=== PATIENT | male | born 1960 | race Caucasian/White ===

== ENCOUNTER 2021-08-05 11:25 | Emergency (ER) | payer SELFPAY ==
[~2021-08-05] VITALS: Ht 160 cm; Wt 61.2 kg
[~2021-08-05 11:25] MED LIST: ASPIRIN81 MG PO; NO MEDS
[2021-08-05 13:16] VITALS: BP 152/88
== END 2021-08-05 13:20 | DRG 605 ==
LOC: ED 11:25
DX: S00.03XA Contusion of scalp, initial encounter (principal); S13.9XXA Sprain of joints and ligaments of unspecified parts of neck, initial encounter; S20.211A Contusion of right front wall of thorax, initial encounter; S70.01XA Contusion of right hip, initial encounter; F17.200 Nicotine dependence, unspecified, uncomplicated; W11.XXXA Fall on and from ladder, initial encounter; Y92.009 Unspecified place in unspecified non-institutional (private) residence as the place of occurrence of the external cause

== ENCOUNTER 2021-08-06 13:06 | Observation (INO) | payer OTHER ==
[~2021-08-06] VITALS: Ht 160 cm; Wt 50.6 kg
[2021-08-06 13:34] LABS: HEMATOCRIT 44.8 % (39.0-50.0); HEMOGLOBIN 15.1 g/dl (14.0-18.0); IMMATURE GRANULOCYTES 0.2 % (0.0-5.0); MEAN CELL VOLUME 96.6 fL CALC (80.0-100.0); MEAN CORPUSCULAR HGB 32.5 pG CALC (26.0-32.0); MEAN CORPUSCULAR HGB CONC 33.7 g/dL CAL (32.0-36.0); NEUT# 4.55 thou/uL (1.82-7.42); RED BLOOD COUNT 4.64 mill/uL (4.70-6.10)
[2021-08-06 13:46] LABS: ALBUMIN 4.2 g/dL (3.2-5.0); ALKALINE PHOSPHATASE 85 u/l (38-126); BUN 12 mg/dL (8-23); BUN/CREATININE RATIO 18 (12-20 (CALC)); CHLORIDE 101 mmol/l (95-108); CREATININE 0.7 mg/dL (0.7-1.3); GFR > 60 ML/MIN (>=60 (CALC)); GFR FOR AFR.AMER. > 60 ML/MIN (>=60 (CALC)); LIPASE 74 u/l (23-300); MAGNESIUM 2.2 mg/dL (1.6-2.3); POTASSIUM 4.3 mmol/l (3.5-5.1); SGOT/AST 38 u/l (19-48); SODIUM 135 mmol/l (137-146); TOTAL PROTEIN 7.7 g/dL (6.3-8.2)
[2021-08-06 13:50] LABS: ANION GAP 10 (6-22 (CALC)); BILIRUBIN, TOTAL 0.9 mg/dL (0.0-1.4); CARBON DIOXIDE 28 mmol/l (22-30)
[2021-08-06 14:01] LABS: ACT PARTIAL THROMBO TIME 24.3 SECONDS (20.0-32.5); INTERNATIONAL NORMALIZED RATIO 0.9 RATIO (0.7-1.3); PROTHROMBIN TIME 9.7 SECONDS (9.0-12.5)
[2021-08-06 16:45] VITALS: BP 141/81
[2021-08-06 19:20] VITALS: BP 143/80
[2021-08-07] VITALS: BP 122/74
[2021-08-07 04:00] VITALS: BP 138/81
[2021-08-07 06:14] LABS: HEMATOCRIT 43.4 % (39.0-50.0); MEAN CELL VOLUME 93.3 fL CALC (80.0-100.0); MEAN CORPUSCULAR HGB 32.3 pG CALC (26.0-32.0); MEAN CORPUSCULAR HGB CONC 34.6 g/dL CAL (32.0-36.0); RED BLOOD COUNT 4.65 mill/uL (4.70-6.10); RED CELL DISTRI WIDTH 13.2 % (11.5-15.5)
[2021-08-07 06:24] LABS: ANION GAP 11 (6-22 (CALC)); BUN 14 mg/dL (8-23); BUN/CREATININE RATIO 22 (12-20 (CALC)); CARBON DIOXIDE 27 mmol/l (22-30); CHLORIDE 101 mmol/l (95-108); CREATININE 0.7 mg/dL (0.7-1.3); GFR > 60 ML/MIN (>=60 (CALC)); GFR FOR AFR.AMER. > 60 ML/MIN (>=60 (CALC)); POTASSIUM 3.8 mmol/l (3.5-5.1); SODIUM 135 mmol/l (137-146)
[2021-08-07 07:30] VITALS: BP 128/74
[2021-08-07 10:22] VITALS: BP 124/82
[2021-08-07] MEDS ORDERED: ASPIRIN 81 LOW81 MG PO (11:11)
[2021-08-07] MEDS ORDERED: ASPIRIN LOW81 M1 PO (11:19)
== END 2021-08-07 11:50 | DRG 313 ==
LOC: ED 13:06 → ED-I 15:04 → ED 15:22 → MS2 15:23
PROVIDERS: ADMIT Hospitalist; ATTEND Hospitalist
DX: R07.9 Chest pain, unspecified (principal); I10 Essential (primary) hypertension; E11.9 Type 2 diabetes mellitus without complications; F17.210 Nicotine dependence, cigarettes, uncomplicated; I25.2 Old myocardial infarction; Z20.822 Contact with and (suspected) exposure to COVID-19
CPT/HCPCS: G0378; J1650; Q9967

== ENCOUNTER 2021-08-28 21:51 | Observation (INO) | payer SELFPAY ==
[~2021-08-28] VITALS: Ht 160 cm; Wt 60.0 kg
[~2021-08-28 21:51] MED LIST changes: +ASPIRIN 81 LOW81 MG PO; +ASPIRIN LOW81 M1 PO
--- NOTE | 2021-08-28 22:40 | NUR ---
TO ROOM 9 VIA W/C. TRIAGED AT BEDSIDE.
[2021-08-28 23:07] LABS: HEMATOCRIT 36.6 % (39.0-50.0); HEMOGLOBIN 12.4 g/dl (14.0-18.0); IMMATURE GRANULOCYTES 0.4 % (0.0-5.0); MEAN CELL VOLUME 96.8 fL CALC (80.0-100.0); MEAN CORPUSCULAR HGB 32.8 pG CALC (26.0-32.0); MEAN CORPUSCULAR HGB CONC 33.9 g/dL CAL (32.0-36.0); NEUT# 3.28 thou/uL (1.82-7.42); RED BLOOD COUNT 3.78 mill/uL (4.70-6.10); RED CELL DISTRI WIDTH 12.9 % (11.5-15.5)
[2021-08-28 23:20] LABS: ALBUMIN 3.6 g/dL (3.2-5.0); ALKALINE PHOSPHATASE 67 u/l (38-126); ANION GAP 7 (6-22 (CALC)); BILIRUBIN, TOTAL 0.6 mg/dL (0.0-1.4); BUN 13 mg/dL (8-23); BUN/CREATININE RATIO 18 (12-20 (CALC)); CARBON DIOXIDE 30 mmol/l (22-30); CHLORIDE 106 mmol/l (95-108); CREATININE 0.7 mg/dL (0.7-1.3); GFR > 60 ML/MIN (>=60 (CALC)); GFR FOR AFR.AMER. > 60 ML/MIN (>=60 (CALC)); POTASSIUM 3.9 mmol/l (3.5-5.1); SGOT/AST 46 u/l (19-48); SODIUM 139 mmol/l (137-146); TOTAL PROTEIN 6.6 g/dL (6.3-8.2)
--- NOTE | 2021-08-29 00:05 | NUR ---
RETURNED FROM X-RAY. NO CHANGE IN EXAM.
--- NOTE | 2021-08-29 00:30 | NUR ---
[facility] AT BEDSIDE
--- NOTE | 2021-08-29 01:15 | NUR ---
[facility] AT BEDSIDE
--- NOTE | 2021-08-29 02:15 | NUR ---
Admission Note Report Given to: STEVE HERRERA Transported by: X Wheelchair Stretcher Transported with: X Nurse Transporter X Patent IV O2 Transfer Agent Location: ICU X [facility]
[2021-08-29 02:25] VITALS: BP 177/82
--- NOTE | 2021-08-29 02:25 | NUR ---
PT ARRIVED TO FLOOR VIA WHEELCHAIR ACCOMPAINED BY ER STAFF. PT ALERT AND ORIENTED X4. PT C/O LEFT SIDED PAIN 05/13. MEDICATED AT THIS TIME WITH PRN PERCOCET. PT DENIES ANY OTHER COMPLAINTS. DISCUSSED POC AND SAFETY PRECAUTIONS. PT VERBALIZED UNDERSTANDING. ORIENTED TO ROOM AND CALL LIGHT SYSTEM. EDUCATED ON PHONE USE IN ROOM UPON REQUEST. IV SITE FLUSHED WELL WITH BRISK BLOOD RETURN, IVF INITIATED. CALL LIGHT WITHIN REACH. WILL CONTINUE TO MONITOR.
[2021-08-29 03:09] VITALS: BP 137/83
[2021-08-29 04:57] VITALS: BP 133/76
--- NOTE | 2021-08-29 06:16 | NUR ---
PT RESTING IN BED. NO APPARENT DISTRESS NOTED. RESPIRATIONS EVEN AND UNLABORED. CALL LIGHT WITHIN REACH. WILL CONTINUE TO MONITOR.
[2021-08-29 09:24] VITALS: BP 135/71
--- NOTE | 2021-08-29 09:24 | NUR ---
PT LAYING IN BED. A&O X3. PT C/O OF LT RIB PAIN. IN NO APPRENT RESPIRATORY DISTRESS. O2 VIA RA 100%. CLEAR BREATH SOUNDS UPON AUSCULTATION. ACTIVE BOWEL SOUNDS X4 QUADRANTS. IV HEALTHY AND PATENT. RT ANKLE SWOLLEN, ELEVATED ON PILLOW. ASSESSMENT COMPLETED. DISCUSSED POC. CALL LIGHT WITHIN REACH.
--- NOTE | 2021-08-29 10:54 | NUR ---
DR PURI AND Wendy CARDENAS APRN AT BEDSIDE DISCUSSING POC
--- NOTE | 2021-08-29 12:45 | NUR ---
PT EATING LUNCH. NO DISTRESS NOTED. CALL LIGHT WITHIN REACH.
[2021-08-29] MEDS ORDERED: FLEXERIL5 M1 PO (13:02)
[2021-08-29] MEDS ORDERED: LORTAB 5/3255 MG PO (13:02)
--- NOTE | 2021-08-29 15:10 | NUR ---
Discharge instructions given. Patient verbalizes understanding of same. Discharged in stable condition via Wheelchair to Home with staff. IS device given. All belongings sent with pt.
--- NOTE | 2021-08-29 15:52 | NUR ---
Attempted evaluation but patient had already discharged
== END 2021-08-29 15:10 | disposition home or self-care (01) | DRG 999 ==
LOC: ED 21:51 → ED-I 08-29 00:33 → ED 08-29 00:59 → MS2 08-29 01:00
PROVIDERS: Emergency Medicine; ADMIT Hospitalist; ATTEND Hospitalist
DX: S27.0XXA Traumatic pneumothorax, initial encounter (principal); S22.32XA Fracture of one rib, left side, initial encounter for closed fracture; S32.028A Other fracture of second lumbar vertebra, initial encounter for closed fracture; I10 Essential (primary) hypertension; E11.9 Type 2 diabetes mellitus without complications; I25.2 Old myocardial infarction; F17.200 Nicotine dependence, unspecified, uncomplicated; V03.90XA Pedestrian on foot injured in collision with car, pick-up truck or van, unspecified whether traffic or nontraffic accident, initial encounter; Y93.89 Activity, other specified; Y92.410 Unspecified street and highway as the place of occurrence of the external cause; Z20.822 Contact with and (suspected) exposure to COVID-19
CPT/HCPCS: G0378; Q9967

== ENCOUNTER 2021-09-15 07:18 | Emergency (ER) | payer SELFPAY ==
[~2021-09-15] VITALS: Ht 160 cm; Wt 60.0 kg
[~2021-09-15 07:18] MED LIST changes: +FLEXERIL5 M1 PO; +LORTAB 5/3255 MG PO
[2021-09-15] MEDS ORDERED: LORTAB 1010 MG PO (09:02)
[2021-09-15] MEDS ORDERED: KEFLEX500 MG PO (09:02)
[2021-09-15 09:15] VITALS: BP 136/90
== END 2021-09-15 09:28 | disposition home or self-care (01) | DRG 603 ==
LOC: ED 07:18
PROC: 0H96XZZ Drainage of Back Skin, External Approach (ICD-10-PCS; principal; 2021-09-15)
DX: L02.212 Cutaneous abscess of back [any part, except buttock and flank] (principal); L02.222 Furuncle of back [any part, except buttock and flank]; F17.210 Nicotine dependence, cigarettes, uncomplicated

== ENCOUNTER 2021-09-17 11:55 | Emergency (ER) | payer SELFPAY ==
[~2021-09-17] VITALS: Ht 160 cm; Wt 60.0 kg
[~2021-09-17 11:55] MED LIST changes: +KEFLEX500 MG PO; +LORTAB 1010 MG PO
[2021-09-17 14:00] VITALS: BP 119/92
== END 2021-09-17 14:10 | disposition home or self-care (01) | DRG 951 ==
LOC: ED 11:55
DX: Z48.01 Encounter for change or removal of surgical wound dressing (principal); F17.210 Nicotine dependence, cigarettes, uncomplicated

== ENCOUNTER 2022-01-22 15:43 | Observation (INO) | payer OTHER ==
[~2022-01-22] VITALS: Ht 160 cm; Wt 60.0 kg
[2022-01-22] VITALS (8 sets, daily range): BP systolic 101–123; BP diastolic 69–78
[2022-01-22 16:04] LABS: HEMATOCRIT 41.2 % (39.0-50.0); HEMOGLOBIN 13.5 g/dl (14.0-18.0); MEAN CELL VOLUME 98.8 fL CALC (80.0-100.0); MEAN CORPUSCULAR HGB 32.4 pG CALC (26.0-32.0); MEAN CORPUSCULAR HGB CONC 32.8 g/dL CAL (32.0-36.0); NEUT# 2.44 thou/uL (1.82-7.42); RED BLOOD COUNT 4.17 mill/uL (4.70-6.10); RED CELL DISTRI WIDTH 14.1 % (11.5-15.5)
[2022-01-22 16:23] LABS: ALBUMIN 3.8 g/dL (3.2-5.0); ALKALINE PHOSPHATASE 84 u/l (38-126); ANION GAP 8 (6-22 (CALC)); BILIRUBIN, TOTAL 0.4 mg/dL (0.0-1.4); BUN 13 mg/dL (8-23); BUN/CREATININE RATIO 19 (12-20 (CALC)); CARBON DIOXIDE 28 mmol/l (22-30); CHLORIDE 106 mmol/l (95-108); CREATININE 0.7 mg/dL (0.7-1.3); GFR > 60 ML/MIN (>=60 (CALC)); GFR FOR AFR.AMER. > 60 ML/MIN (>=60 (CALC)); LIPASE 190 u/l (23-300); SGOT/AST 35 u/l (19-48); SODIUM 137 mmol/l (137-146); TOTAL PROTEIN 6.9 g/dL (6.3-8.2)
[2022-01-22 16:37] LABS: INTERNATIONAL NORMALIZED RATIO 0.9 RATIO (0.7-1.3); PROTHROMBIN TIME 9.7 SECONDS (9.0-12.5)
[2022-01-23 00:06] VITALS: BP 114/68
[2022-01-23 02:23] LABS: URINE BILIRUBIN - DIPSTICK NEGATIVE (NEGATIVE); URINE BLOOD DIPSTICK NEGATIVE (NEGATIVE); URINE COLOR YELLOW; URINE GLUCOSE - DIPSTICK NEGATIVE (NEGATIVE); URINE KETONE NEGATIVE (NEGATIVE); URINE LEUK ESTERASE NEGATIVE (NEGATIVE); URINE PH 5.5 (4.5-8.0); URINE PROTEIN - DIPSTICK NEGATIVE (NEG-TRACE); URINE SPECIFIC GRAVITY 1.025; URINE UROBILINOGEN - DIPSTICK 0.2 E.U./dL (0.2)
[2022-01-23 02:24] LABS: URINE NITRITE - DIPSTICK NEGATIVE (Negative)
[2022-01-23 04:19] VITALS: BP 98/62
[2022-01-23 05:02] VITALS: BP 101/71
[2022-01-23 05:57] LABS: MAGNESIUM 2.1 mg/dL (1.6-2.3)
[2022-01-23 07:15] VITALS: BP 108/69
[2022-01-23 08:10] VITALS: BP 108/69; BP 133/71
[2022-01-23 10:24] VITALS: BP 133/71
[2022-01-23] MEDS ORDERED: BENADRYL25 M1 PO (11:15)
== END 2022-01-23 13:58 | disposition home or self-care (01) | DRG 313 ==
LOC: ED 15:43 → MS2 19:00
PROVIDERS: ADMIT Internal Medicine; ATTEND Internal Medicine
DX: R07.89 Other chest pain (principal); I10 Essential (primary) hypertension; E11.9 Type 2 diabetes mellitus without complications; I25.2 Old myocardial infarction; F17.200 Nicotine dependence, unspecified, uncomplicated; Z23 Encounter for immunization; Z20.822 Contact with and (suspected) exposure to COVID-19; R07.9 Chest pain, unspecified
CPT/HCPCS: G0378; Q9967